=== PATIENT | female | born 1965 | race American Indian/Alaskan Native ===

== ENCOUNTER 2018-06-18 09:15 | Day surgery (SDC) | payer BC ==
[~2018-06-18 09:15] MED LIST: ANCEF/STERILE WATER 2 GM/20 ML 2 GM/20 ML SYRINGE IV NR; NACL 0.9% 1000 ML 1,000 ML IV SCH
[2018-06-18 10:09] LABS: Basophils # (Auto) 0.1 K/mm3 (0.0-0.1); Basophils % (Auto) 1.1 % (0.0-1.8); Eosinophils # (Auto) 0.1 K/mm3 (0.0-0.4); Eosinophils % (Auto) 1.9 % (0.0-4.3); Hematocrit 39.7 % (30.3-42.9); Hemoglobin 13.4 gm/dl (10.1-14.3); Lymphocytes # (Auto) 2.3 K/mm3 (1.2-5.4); Lymphocytes % (Auto) 50.2 % (13.4-35.0); Mean Corpuscular HGB Conc 34 % (30-34); Mean Corpuscular Volume 87 fl (79-97); Monocytes # (Auto) 0.3 K/mm3 (0.0-0.8); Monocytes % (Auto) 7.4 % (0.0-7.3); Platelet Count 195 K/mm3 (140-440); Red Blood Count 4.54 M/mm3 (3.65-5.03); Red Cell Distribution Width 13.8 % (13.2-15.2)
[2018-06-18 10:23] LABS: BUN/Creatinine Ratio 11; Blood Urea Nitrogen 9 mg/dL (7-17); Calcium 9.3 mg/dL (8.4-10.2); Hemolysis Index 5
[2018-06-18 10:24] LABS: Partial Thromboplastin Time 29.4 Sec. (24.2-36.6)
[2018-06-18] MEDS ORDERED: HEPARIN/NS 5000 UNIT/500ML(CATH LAB) 1,000 ML IR ONE (12:16)
[2018-06-18] MEDS ORDERED: HEPARIN 10,000 UNITS/10 ML ONE (12:16)
[2018-06-18] MEDS: VERSED ONE ×3 (12:19→12:52)
[2018-06-18] MEDS: SUBLIMAZE ONE ×3 (12:19→12:52)
[2018-06-18] MEDS: XYLOCAINE 2% INFILTRATI ONE ×3 (12:20→12:53)
[2018-06-18] MEDS ORDERED: ANCEF/STERILE WATER 2 GM/20 ML 2 GM/20 ML SYRINGE IV ONE (12:40)
[2018-06-18] MEDS ORDERED: ZOFRAN ONE (12:44)
--- NOTE | 2018-06-18 13:52 | Operative Report ---
Operative Report Operative Report: Operative note: Date: 06/18/2018 Preoperative diagnosis:. Recurrent lower extremity discomfort, suspect iliac compression Postoperative diagnosis: same Operation: Bilateral ultrasound-guided venous access, upper thigh vein bilateral femoral vein proximally. Bilateral venogram. Intravascular ultr asound of distal IVC, bilateral common and external iliac, common femoral veins. Surgeon: Flower Anderson. Asst.: none Anesthesia: moderate sedation and local EBL: Minimal Findings: mild diffuse scarring of right external iliac vein, no focal stenosis Indications: A 53-year-old female status post bilateral saphenous vein ablations study having recurrent symptoms. She was discussed performing venogram as a next step to check for external iliac compression. She understood all risks, benefits and alternative procedure and chose to proceed and signed consent. Operative details: Patient was brought to the [employer] and placed in supine position. Bilateral femoral area and upper thigh medially were prepped and draped in sterile fashion. Timeout was performed. Right femoral vein proximally was accessed under ultrasound guidance with micropuncture needle and exchanged the micropuncture sheath. That was upsized to 5 German access sheath. Next, left access was performed in the great saphenous vein was micropuncture needle and that was upsized to micropuncture sheath and then 5 German access sheath. Venogram was performed bilaterally noting any of the contrast on the right c ommon iliac side. Bilateral wire access was done with Richards on the right side and J-wire and left side. on the right side definitely 5 German sheath was upsized to 10 German sheath. On the left side it was upsized to 8 German access she is in plan for intravascular ultrasound.IVUS was done noting a lot of scarring and no focal stenosis of the right side and left side. Says there is no stent pull lesions decision was made not to perform stenting.. Wires were removed and sheath were pulled, manual pressure held. Pressure dressing were applied. Patient tolerated procedure well.
--- NOTE | 2018-06-18 13:57 | Short Stay Summary ---
Short Stay Documentation Date of service: 06/18/18 - History H&P: obtained from office - Allergies and Medications Current Medications: Allergies No Known Allergies Allergy (Verified 06/18/18 09:30) Home Medications Medication Instructions Recorded Confirmed Last Taken Type Olmesartan/Hydrochlorothiazide 1 tab PO DAILY 06/18/18 06/18/18 04/24/18 History [Olmesartan-Hctz 20-12.5 mg Tab] 1 Ranitidine HCl [Zantac] 300 mg PO DAILY 06/18/18 06/18/18 06/11/18 History 300mg Active Medications Cefazolin Sodium (Ancef/Sterile Water 2 Gm/20 Ml) 2 gm in 20 mls @ 80 mls/hr IV PREOP NR; Protocol Stop: 06/18/18 23:59 Sodium Chloride (Nacl 0.9% 1000 Ml) 1,000 mls @ 42 mls/hr IV DIRECT ELLIOT Last Admin: 06/18/18 10:29 Dose: 42 mls/hr Documented by: - Brief post op/procedure progress note Date of procedure: 06/18/18 Pre-op diagnosis: recurrent symptoms of venous insufficiency, suspect iliac compression Post-op diagnosis: same Procedure: bilateral US guided acess bilateral femoral vein. Bilateral IVUS of external, common iliac veins Anesthesia: MAC Findings: diffuse scarring of right external iliac vein, no focal stenosis Surgeon: OBDULIO GRADY Estimated blood loss: minimal Condition: stable - Disposition Condition at discharge: Good Disposition: DC-01 TO HOME OR SELFCARE Short Stay Discharge Plan Diet: regular Wound: keep clean and dry Follow up with: MARIJA HERNÁNDEZ DO [Primary Care Provider] - 7 Days OBDULIO GRADY DO [Staff Physician] - 14 Days Prescriptions: Aspirin [Adult Low Dose Aspirin EC] 81 mg PO DAILY #30 tablet.
[2018-06-18] MEDS ORDERED: NORCO 5/325 ONE (14:07)
[2018-06-18] MEDS ORDERED: NORCO 5/325 PO ONE (14:09)
[2018-06-18 15:33] VITALS: BP 116/71
== END 2018-06-18 15:45 | disposition home or self-care (01) ==
LOC: CATHLABREC 09:15
PROVIDERS: ATTEND Surgery Vascular Surgery
DX: I87.1 Compression of vein (principal); I87.323 Chronic venous hypertension (idiopathic) with inflammation of bilateral lower extremity; I73.9 Peripheral vascular disease, unspecified; I10 Essential (primary) hypertension; M19.90 Unspecified osteoarthritis, unspecified site; Z79.899 Other long term (current) drug therapy; Z79.82 Long term (current) use of aspirin; Z96.642 Presence of left artificial hip joint; Z98.890 Other specified postprocedural states; Z86.2 Personal history of diseases of the blood and blood-forming organs and certain disorders involving the immune mechanism
CPT/HCPCS: 36415; 37252; 37253; 75822; 76937; 80048; 85025; 85610; 85730; 99156; 99157; C1753; C1894; J0690; J1644; J2250; J2405; J3010; J7030; Q9967